=== PATIENT | female | born 1990 | race Caucasian/White ===

== ENCOUNTER 2020-07-12 11:00 | Outpatient (CLI) | payer OTHER, SELFPAY ==
--- NOTE | 2020-07-12 11:08 | XR_ITS ---
WS: [id number] FOOT RIGHT TECHNIQUE: 3 views of the right foot CLINICAL INFORMATION: RIGHT FOOT PAIN COMPARISON: None. FINDINGS: No evidence of acute fracture or dislocation. Normal tarsal metatarsal alignment. Normal calcaneus. N ormal visualized talar dome. No acute findings. XR/XR foot RT min 3V* [id number] IMPRESSION: Normal right foot.
== END 2020-07-12 11:01 | disposition home or self-care (01) ==
LOC: RADWPI 11:04
PROVIDERS: PCP Family Medicine; Visit Provider Physician Assistant Medical
DX: M79.671 Pain in right foot (principal)
CPT/HCPCS: 73630

== ENCOUNTER 2021-07-26 09:41 | Outpatient (CLI) | payer OTHER, SELFPAY ==
[2021-07-26 10:42] LABS: Prolactin 21.32 ng/mL (4.8-23.3)
== END 2021-07-26 09:42 | disposition home or self-care (01) ==
LOC: LAB 09:43
PROVIDERS: PCP Family Medicine; Visit Provider Internal Medicine
DX: D35.2 Benign neoplasm of pituitary gland (principal)
CPT/HCPCS: 36415; 84146

== ENCOUNTER 2022-10-17 15:02 | Outpatient (CLI) | payer OTHER, SELFPAY ==
--- NOTE | 2022-10-17 15:17 | MR_ITS ---
WS: [id number] MRI BRAIN WITHOUT AND WITH CONTRAST, ATTENTION DIRECTED TO THE PITUITARY GLAND HISTORY: prolactinoma COMPARISON: 08/09/2017, 03/15/2015 and 08/27/2009 TECHNIQUE: Diffusion-weighted imaging, axial T2 sequence, and postcontrast images in 3 planes are per formed. High-resolution coronal and sagittal imaging performed through the pituitary region with and without intravenous gadolinium. MultiHance 14 mL IV. Normal diffusion imaging. Very slight ectopia of the cerebellar tonsils, similar to prior studies. No hydrocephalus. Ventricles are normal size. No prior infarct. No mass at the cerebellopontine angles. No intracranial mass. No prior infarct. High-resolution imaging through the pituitary gland is obtained. Pituitary gland is very small calibe r in the floor of the sella turcica. There is no hypointense mass is identified. No abnormal enhancem ent. The overall height of the pituitary gland has decreased since 2018. Pituitary infundibulum and t he optic chiasm are normal. Slight asymmetry of the pituitary with the LEFT pituitary gland being sma ller in height as compared to the RIGHT. No cavernous sinus abnormality. Paranasal sinuses and mastoid air cells are clear. No calvarial abnormality. MR/MR pituitary wo/w con* [id number] IMPRESSION: 1. No pituitary mass or hypointense nodules. Previously described very subtle possible microadenoma on 03/15/2015 is not identified today. 2. Continued atrophy and decrease in height of the pituitary gland as compared to the prior studies. 3. Stable mild cerebellar ectopia.
[2022-10-17] MEDS: gadobenate dimeglumine 20 mL vial IV (16:26)
== END 2022-10-17 15:03 | disposition home or self-care (01) ==
PROVIDERS: PCP Family Medicine; Visit Provider Internal Medicine
DX: D35.2 Benign neoplasm of pituitary gland (principal); Q04.8 Other specified congenital malformations of brain
CPT/HCPCS: 70553; A9577

== ENCOUNTER 2023-09-22 15:29 | Emergency (ER) | payer OTHER, SELFPAY ==
[2023-09-22 15:32] VITALS: BP 108/74; PULSE 102; RESP 17; TEMP 36.6; O2SAT 96; BMI 26.6
--- NOTE | 2023-09-22 15:43 | ED_ITS ---
Documented by User: CRYSTAL Welch 09/22/23 18:38 HPI - Nausea/Vomiting/Diarrhea 2 General: Chief complaint: Nausea/Vomiting/Diarrhea Stated complaint: n/v, diarrhea Time Seen by Provider: 09/22/23 15:36 Source: patient Mode of arrival: ambulatory Limitations: no limitations History of Present Illness: Patient is a 33-year-old female presenting to the emergency department complaining of nausea, vomiting, and diarrhea onset this morning. Patient notes that she took a max dose of semaglutide yesterday as obtained from a friend, which occurred at approximately 2000 in the evening. Patient states she woke up this morning around 0230 with sudden onset nausea and vomiting. She reports too many episodes to count of vomiting, denies any blood in her vomit. She is unable to keep down any solids or liquids. She is also reporting associated diarrhea. She is denying any fevers, chest pains, breathing difficulties, palpitations, or any other symptoms. She does note that she took the semaglutide for the intent of weight loss, and notes being prescribed by her PCP in the past, but was unable to fill the prescription. MD elicited complaint: nausea, vomiting and diarrhea Onset (ago): hour(s) Description of vomiting: watery Description of diarrhea: watery Associated nausea: Yes Associated abdominal pain: No Context: new medication Associated symtoms: Reports nausea; Denies chest pain, diaphoresis, dizziness, dysuria, headache(s) or palpitations Review of Systems 2 General: Reports: 10 or more systems reviewed and unremarkable except in HPI and below Const: Denies: fever(s), chills, change in appetite, change in weight or diaphoresis ENMT: Denies: throat pain or hoarseness Card: Denies: chest pain, palpitations or lightheadedness Resp: Denies: dyspnea, productive cough or wheezing GI: Reports: nausea, vomiting and diarrhea; Denies: abdominal pain, hematemesis or hematochezia : Denies: flank pain, difficulty voiding, dysuria, urinary frequency or urinary urgency Musc: Denies: neck pain or back pain Skin/Breast: Denies: rash or new lesions Neuro: Denies: headache(s) or dizziness PFSH ED 2 PFSH: Medical History History of anxiety History of depression IBS (irritable bowel syndrome) Surgical History Hx of wisdom tooth extraction Family History Mother Hypertension Heart disease Hypercholesteremia Grandmother Hypertension Maternal and Paternal Diabetes Maternal and Paternal Heart disease Maternal Hypercholesteremia Maternal Thyroid disease Maternal Grandfather Hypertension Maternal and Paternal Diabetes Maternal and Paternal Heart disease Maternal Stroke Paternal Hypercholesteremia Maternal Denies family history of Colon cancer Ovarian cancer Breast cancer Uterine cancer Social History Smoking and tobacco/nicotine status: never used tobacco/nicotine Second hand smoke exposure: No Alcohol intake: current Alcohol intake frequency: holidays/special occasions only Alcohol type: hard liquor Substance/Drug Use: never Adopted: No Caregiver/support person: No Lives independently: Yes Household members: spouse Housing: House Marital status: Number of children: 0 Highest education level completed: Associate Degree: Academic Program Current occupational status: employed Physical Exam 2 Const: COMMON NORMALS: no acute distress, average body habitus, patient oriented x3, no limitations, healthy appearing, alert and well nourished G ENERAL APPEARANCE: cooperative and comfortable ORIENTATION/CONSCIOUSNESS: Yes awake HENMT: COMMON NORMALS: normocephalic, atraumatic, hearing grossly normal bilaterally, external ears normal, Normal external nose present, Normal nasal mucous membranes and turbinates present and moist oral mucous membranes HEAD & SCALP: normocephalic and atraumatic NOSE: Normal external nose present and Normal nasal mucous membranes and turbinates present EXTERNAL EAR: Yes external ears normal Eye: COMMON NORMALS: Equal, round and reactive pupils present, EOMs intact bilaterally, conjunctivae normal and normal visual crowder by confrontation C ONJUNCTIVA: Yes conjunctivae normal PUPIL: Yes Equal, round and reactive pupils present Neck/C-Spine: COMMON NORMALS: full ROM, supple, no meningeal signs and no JVD Resp: COMMON NORMALS: normal respiratory effort, No retractions, No use of accessory muscles and clear to auscultation bilaterally AUSCULTATION: clear to auscultation bilaterally, no crackles, no rales, no rhonchi and no wheezes Cardio: COMMON NORMALS: no JVD, regular rate, regular rhythm, S1 normal heart sound present, S2 normal heart sound present, No gallops present (Cardio), No clicks present (Cardio), No murmurs present (Cardio), No rub (Cardio) and Peripheral pulses 2+ throughout RATE: regular rate RHYTHM: regular rhythm HEART SOUNDS: S1 normal heart sound present and S2 normal heart sound present PERIPHERAL PULSES: Peripheral pulses 2+ throughout GI: COMMON NORMALS: Normal to inspection, nondistended, normoactive bowel sounds present, Soft to palpation, non-tender, No hepatosplenomegaly present and no masses AUSCULTATION: Yes normoactive bowel sounds PALPATION: Yes Soft to palpation, No Guarding due to palpation present (GI), No Rigid due to palpation and Yes No hepatosplenomegaly present RECTAL EXAM: deferred : COMMON NORMALS: Yes no CVA tenderness BLADDER/KIDNEY EXAM: Yes no CVA tenderness Back/Pelvis: COMMON NORMALS: no CVA tenderness Extremity: COMMON NORMALS: normal to inspection and full ROM Neuro: COMMON NORMALS: patient oriented x3, moves all extremities, no focal motor deficits and no sensory deficits noted SENSORIUM/ORIENTATION: Yes alert MENINGEAL SIGNS: Yes no meningeal signs Psych: COMMON NORMALS: mental status grossly normal, cooperative and speech normal SPEECH: Yes normal speech Skin: COMMON NORMALS: no rashes or lesions noted GENERAL SKIN EXAM: no rashes or lesions noted Course 2 Vital Signs: Vital signs: Vital Signs Temperature 97.9 F 09/22/23 15:32 Pulse Rate 93 09/22/23 18:02 Respiratory Rate 17 09/22/23 15:32 Blood Pressure 118/78 09/22/23 18:02 Pulse Oximetry 97 09/22/23 18:02 Oxygen Delivery Me thod Room Air 09/22/23 16:11 MDM - Nausea/Vomiting/Diarrhea Medical Decision Making Patient seen and evaluated for nausea vomiting and diarrhea earlier this morning, soon after taking max dose of semaglutide. On arrival patient's vitals unremarkable. Exam unremarkable. Patient started on a liter of fluids and given Zofran. Basic laboratory workup is negative. Upon recheck, patient states that she feels much better and is ready to go home. I will send her home with prescription for Zofran, and instructed her to follow-up with her PCP to discuss any prescriptions for low-dose semaglutide. Return precautions are given and patient agrees with discharge home. Lab Data I reviewed the patient's lab results. 09/22/23 15:49 09/22/23 15:49 Laboratory Results WBC 9.08 10^3/uL (3.29-11.43) 09/22/23 15:49 RBC 4.77 10^6/uL (3.85-5.65) 09/22/23 15:49 Hgb 15.50 g/dL (11.27-16.99) 09/22/23 15:49 Hct 45.3 % (36-47) 09/22/23 15:49 MCV 95.0 fl (85-98) 09/22/23 15:49 MCH 32.5 pg (27-33) 09/22/23 15:49 MCHC 34.2 g/dL (30-55) 09/22/23 15:49 RDW 11.9 % (12.1-15.1) L 09/22/23 15:49 Plt Count 328 10^3/cmm (157-399) 09/22/23 15:49 MPV 9.3 fL (7.4-10.4) 09/22/23 15:49 Neut % (Auto) 82.1 % 09/22/23 15:49 Lymph % (Auto) 13.4 % 09/22/23 15:49 [place] % (Auto) 4.1 % 09/22/23 15:49 Eos % (Auto) 0.0 % 09/22/23 15:49 Baso % (Auto) 0.3 % 09/22/23 15:49 Neut # (Auto) 7.45 10^3/uL (1.8-7.7) 09/22/23 15:49 Lymph # (Auto) 1.2 10^3/uL (0.8-4.8) 09/22/23 15:49 [place] # (Auto) 0.4 10^3/uL (0.2-0.9) 09/22/23 15:49 Eos # (Auto) 0.0 10^3/uL (0.0-0.8) 09/22/23 15:49 Baso # (Auto) 0.0 10^3/uL (0.0-0.1) 09/22/23 15:49 Nucleated RBC % (auto) 0 % 09/22/23 15:49 Nucleated RBCs # 0.0 /100WBC 09/22/23 15:49 Sodium 139 mmol/L (136-145) 09/22/23 15:49 Potassium 4.5 mmol/L (3.5-5.1) 09/22/23 15:49 Chloride 102 mmol/L (98-107) 09/22/23 15:49 Carbon Dioxide 26 mmol/L (22-29) 09/22/23 15:49 Anion Gap 15.5 (5-19) 09/22/23 15:49 BUN 12 mg/dL (6-20) 09/22/23 15:49 Creatinine 0.6 mg/dL (0.5-0.9) 09/22/23 15:49 GFR Calculation 115.9 mL/min (90-130) 09/22/23 15:49 Glucose 92 mg/dL (65-115) 09/22/23 15:49 Calculated Osmolality 287 mOsm/kg (285-295) 09/22/23 15:49 Calcium 9.5 mg/dL (8.5-10.5) 09/22/23 15:49 Total Bilirubin 0.4 mg/dL (0.15-1.2) 09/22/23 15:49 AST 19 U/L (0-32) 09/22/23 15:49 ALT 16 U/L (0-33) 09/22/23 15:49 Alkaline Phosphatase 84 U/L (35-105) 09/22/23 15:49 Total Protein 7.4 g/dL (6.6-8.7) 09/22/23 15:49 Albumin 4.0 g/dL (3.5-5.2) 09/22/23 15:49 Globulin 3.4 g/dL (1.3-4.6) 09/22/23 15:49 Lipase 48 U/L (13-60) 09/22/23 15:49 HCG, Qual Negative (Negative) 09/22/23 15:49 Urine Color Yellow (Yellow) 09/22/23 16:50 Urine Appearance Clear (CLEAR) 09/22/23 16:50 Urine pH 8 (5-7) H 09/22/23 16:50 Ur Specific [place] 1.010 (1.005-1.030) 09/22/23 16:50 Urine Protein Neg (Negative) 09/22/23 16:50 Urine Glucose (UA) Norm (Normal) 09/22/23 16:50 Urine Ketones 2+ (Negative) H 09/22/23 16:50 Urine Blood Neg (Negative) 09/22/23 16:50 Urine Nitrate Negative (Negative) 09/22/23 16:50 Urine Bilirubin Neg (Negative) 09/22/23 16:50 Urine Urobilinogen Norm mg/dL (Negative) 09/22/23 16:50 Ur Leukocyte Esterase 1+ (Negative) H 09/22/23 16:50 Urine RBC None /hpf (0-2) 09/22/23 16:50 Urine WBC 5-10 /hpf (0-5) H 09/22/23 16:50 Ur Squamous Epith Cells 0-4 /hpf (0-5) H 09/22/23 16:50 Amorphous Sediment Not Reportable 09/22/23 16:50 Urine Bacteria Trace /hpf (NONE) 09/22/23 16:50 Urine Mucus 1+ /hpf 09/22/23 16:50 No radiology studies performed this visit Discharge Plan Discharge Patient Disposition: Home Clinical Impression: Drug-induced nausea and vomiting Condition: Stable Prescriptions: New ondansetron 4 mg tablet,disintegrating 4 mg PO TID PRN (Reason: nausea and vomiting) Qty: 60 0RF No Action estradiol 2 mg (7.5 mcg /24 hour) ring 1 vag ring vaginal Q90D loratadine [Claritin] 10 mg tablet 10 mg PO DAILY cabergoline 0.5 mg tablet See Rx Instructions .ROUTE .COMPLEX Qty: 24 0RF Dose Instruction: TAKE 1 TABLET BY MOUTH TWICE A WEEK Rx Instructions: TAKE 1 TABLET BY MOUTH TWICE A WEEK ondansetron 4 mg tablet,disintegrating 4 mg PO Q6H PRN (Reason: Nausea And Vomiting) duloxetine 30 mg capsule,delayed release(DR/EC) 30 mg PO DAILY Cranberry 3,000 3,000 mg PO DAILY Discharge Orders: Discharge ED (Routine); Ordered 09/22/23 Ordered By: Cedric Soto Referrals: Jessica Alcantar MD [Primary Care Provider] - Discharge Diet: Usual diet Discharge Activity: Increase activity as tolerated Patient Instructions: Acute Nausea and Vomiting (ED) Activity Restrictions/Additional Instructions: Zofran for nausea. Plenty of fluids. Follow-up with primary care provider to discuss prescription of semaglutide. Return with any new or concerning symptoms. Coding Level of Care Code ED Product Support Rep for Chg Fwd Documented by User: Catrachito Ramirez DO 09/28/23 12:10 HPI - Nausea/Vomiting/Diarrhea 2 General: Chief complaint: Nausea/Vomiting/Diarrhea Stated complaint: n/v, diarrhea Time Seen by Provider: 09/22/23 15:36 PFSH ED 2 PFSH: Medical History History of anxiety History of depression IBS (irritable bowel syndrome) Surgical History Hx of wisdom tooth extraction Family History Mother Hypertension Heart disease Hypercholesteremia Grandmother Hypertension Maternal and Paternal Diabetes Maternal and Paternal Heart disease Maternal Hypercholesteremia Maternal Thyroid disease Maternal Grandfather Hypertension Maternal and Paternal Diabetes Maternal and Paternal Heart disease Maternal Stroke Paternal Hypercholesteremia Maternal Denies family history of Colon cancer Ovarian cancer Breast cancer Uterine cancer Social History Smoking and tobacco/nicotine status: never used tobacco/nicotine Second hand smoke exposure: No Alcohol intake: current Alcohol intake frequency: holidays/special occasions only Alcohol type: hard liquor Substance/Drug Use: never Adopted: No Caregiver/support person: No Lives independently: Yes Household members: spouse Housing: House Marital status: Number of children: 0 Highest education level completed: Associate Degree: Academic Program Current occupational status: employed Course 2 Vital Signs: Vital signs: Vital Signs Temperature 97.9 F 09/22/23 15:32 Pulse Rate 93 09/22/23 18:02 Respiratory Rate 17 09/22/23 15:32 Blood Pressure 118/78 09/22/23 18:02 Pulse Oximetry 97 09/22/23 18:02 Oxygen Delivery Me thod Room Air 09/22/23 16:11 MDM - Nausea/Vomiting/Diarrhea Medical Decision Making Patient seen and evaluated for nausea vomiting and diarrhea earlier this morning, soon after taking max dose of semaglutide. On arrival patient's vitals unremarkable. Exam unremarkable. Patient started on a liter of fluids and given Zofran. Basic laboratory workup is negative. Upon recheck, patient states that she feels much better and is ready to go home. I will send her home with prescription for Zofran, and instructed her to follow-up with her PCP to discuss any prescriptions for low-dose semaglutide. Return precautions are given and patient agrees with discharge home. Chart review Lab Data 09/22/23 15:49 09/22/23 15:49 Laboratory Results WBC 9.08 10^3/uL (3.29-11.43) 09/22/23 15:49 RBC 4.77 10^6/uL (3.85-5.65) 09/22/23 15:49 Hgb 15.50 g/dL (11.27-16.99) 09/22/23 15:49 Hct 45.3 % (36-47) 09/22/23 15:49 MCV 95.0 fl (85-98) 09/22/23 15:49 MCH 32.5 pg (27-33) 09/22/23 15:49 MCHC 34.2 g/dL (30-55) 09/22/23 15:49 RDW 11.9 % (12.1-15.1) L 09/22/23 15:49 Plt Count 328 10^3/cmm (157-399) 09/22/23 15:49 MPV 9.3 fL (7.4-10.4) 09/22/23 15:49 Neut % (Auto) 82.1 % 09/22/23 15:49 Lymph % (Auto) 13.4 % 09/22/23 15:49 [place] % (Auto) 4.1 % 09/22/23 15:49 Eos % (Auto) 0.0 % 09/22/23 15:49 Baso % (Auto) 0.3 % 09/22/23 15:49 Neut # (Auto) 7.45 10^3/uL (1.8-7.7) 09/22/23 15:49 Lymph # (Auto) 1.2 10^3/uL (0.8-4.8) 09/22/23 15:49 [place] # (Auto) 0.4 10^3/uL (0.2-0.9) 09/22/23 15:49 Eos # (Auto) 0.0 10^3/uL (0.0-0.8) 09/22/23 15:49 Baso # (Auto) 0.0 10^3/uL (0.0-0.1) 09/22/23 15:49 Nucleated RBC % (auto) 0 % 09/22/23 15:49 Nucleated RBCs # 0.0 /100WBC 09/22/23 15:49 Sodium 139 mmol/L (136-145) 09/22/23 15:49 Potassium 4.5 mmol/L (3.5-5.1) 09/22/23 15:49 Chloride 102 mmol/L (98-107) 09/22/23 15:49 Carbon Dioxide 26 mmol/L (22-29) 09/22/23 15:49 Anion Gap 15.5 (5-19) 09/22/23 15:49 BUN 12 mg/dL (6-20) 09/22/23 15:49 Creatinine 0.6 mg/dL (0.5-0.9) 09/22/23 15:49 GFR Calculation 115.9 mL/min (90-130) 09/22/23 15:49 Glucose 92 mg/dL (65-115) 09/22/23 15:49 Calculated Osmolality 287 mOsm/kg (285-295) 09/22/23 15:49 Calcium 9.5 mg/dL (8.5-10.5) 09/22/23 15:49 Total Bilirubin 0.4 mg/dL (0.15-1.2) 09/22/23 15:49 AST 19 U/L (0-32) 09/22/23 15:49 ALT 16 U/L (0-33) 09/22/23 15:49 Alkaline Phosphatase 84 U/L (35-105) 09/22/23 15:49 Total Protein 7.4 g/dL (6.6-8.7) 09/22/23 15:49 Albumin 4.0 g/dL (3.5-5.2) 09/22/23 15:49 Globulin 3.4 g/dL (1.3-4.6) 09/22/23 15:49 Lipase 48 U/L (13-60) 09/22/23 15:49 HCG, Qual Negative (Negative) 09/22/23 15:49 Urine Color Yellow (Yellow) 09/22/23 16:50 Urine Appearance Clear (CLEAR) 09/22/23 16:50 Urine pH 8 (5-7) H 09/22/23 16:50 Ur Specific [place] 1.010 (1.005-1.030) 09/22/23 16:50 Urine Protein Neg (Negative) 09/22/23 16:50 Urine Glucose (UA) Norm (Normal) 09/22/23 16:50 Urine Ketones 2+ (Negative) H 09/22/23 16:50 Urine Blood Neg (Negative) 09/22/23 16:50 Urine Nitrate Negative (Negative) 09/22/23 16:50 Urine Bilirubin Neg (Negative) 09/22/23 16:50 Urine Urobilinogen Norm mg/dL (Negative) 09/22/23 16:50 Ur Leukocyte Esterase 1+ (Negative) H 09/22/23 16:50 Urine RBC None /hpf (0-2) 09/22/23 16:50 Urine WBC 5-10 /hpf (0-5) H 09/22/23 16:50 Ur Squamous Epith Cells 0-4 /hpf (0-5) H 09/22/23 16:50 Amorphous Sediment Not Reportable 09/22/23 16:50 Urine Bacteria Trace /hpf (NONE) 09/22/23 16:50 Urine Mucus 1+ /hpf 09/22/23 16:50 Discharge Plan Discharge Patient Disposition: Home Clinical Impression: Drug-induced nausea and vomiting Condition: Stable Prescriptions: New ondansetron 4 mg tablet,disintegrating 4 mg PO TID PRN (Reason: nausea and vomiting) Qty: 60 0RF No Action estradiol 2 mg (7.5 mcg /24 hour) ring 1 vag ring vaginal Q90D loratadine [Claritin] 10 mg tablet 10 mg PO DAILY cabergoline 0.5 mg tablet See Rx Instructions .ROUTE .COMPLEX Qty: 24 0RF Dose Instruction: TAKE 1 TABLET BY MOUTH TWICE A WEEK Rx Instructions: TAKE 1 TABLET BY MOUTH TWICE A WEEK ondansetron 4 mg tablet,disintegrating 4 mg PO Q6H PRN (Reason: Nausea And Vomiting) duloxetine 30 mg capsule,delayed release(DR/EC) 30 mg PO DAILY Cranberry 3,000 3,000 mg PO DAILY Discharge Orders: Discharge ED (Routine); Ordered 09/22/23 Ordered By: Cedric Soto Referrals: Jessica Alcantar MD [Primary Care Provider] - Discharge Diet: Usual diet Discharge Activity: Increase activity as tolerated Patient Instructions: Acute Nausea and Vomiting (ED) Activity Restrictions/Additional Instructions: Zofran for nausea. Plenty of fluids. Follow-up with primary care provider to discuss prescription of semaglutide. Return with any new or concerning symptoms. Coding Level of Care Code ED Product Support Rep for Bronson Noel
[2023-09-22 15:53] LABS: Basophils % 0.3 %; Hematocrit 45.3 % (36-47); Lymphocytes # 1.2 10^3/uL (0.8-4.8); Lymphocytes % 13.4 %; Mean Corpuscular HGB Conc 34.2 g/dL (30-55); Mean Corpuscular Hemoglobin 32.5 pg (27-33); Mean Platelet Volume 9.3 fL (7.4-10.4); Monocytes # 0.4 10^3/uL (0.2-0.9); Monocytes % 4.1 %; Neutrophils # 7.45 10^3/uL (1.8-7.7); Neutrophils % 82.1 %; Nucleated Red Blood Cells % 0 %; Platelet Count 328 10^3/cmm (157-399); Red Blood Count 4.77 10^6/uL (3.85-5.65); Red Cell Distribution Width 11.9 % (12.1-15.1); White Blood Count 9.08 10^3/uL (3.29-11.43)
[2023-09-22 16:05] LABS: HCG, Serum Qual Negative (Negative)
[2023-09-22] MEDS: ondansetron 2 mg/ML SDV 2 mL 4 MG IVP (16:07)
[2023-09-22] MEDS: sodium chloride 0.9% 1,000 ML 999 ML IV (16:08)
[2023-09-22 16:10] LABS: Alanine Aminotransferase 16 U/L (0-33); Alkaline Phosphatase 84 U/L (35-105); Anion Gap 15.5 (5-19); Aspartate Amino Transferase 19 U/L (0-32); Blood Urea Nitrogen 12 mg/dL (6-20); Calcium 9.5 mg/dL (8.5-10.5); Carbon Dioxide 26 mmol/L (22-29); Chloride 102 mmol/L (98-107); Creatinine Clr Calc Pharmacy 139.2241; Globulin 3.4 g/dL (1.3-4.6); Glomerular Filtration Rate 115.9 mL/min (90-130); Glucose 92 mg/dL (65-115); Lipase 48 U/L (13-60); Osmolality Calculated 287 mOsm/kg (285-295); Potassium 4.5 mmol/L (3.5-5.1); Sodium 139 mmol/L (136-145); Total Bilirubin 0.4 mg/dL (0.15-1.2); Total Protein 7.4 g/dL (6.6-8.7)
[2023-09-22 16:11] VITALS: BP 98/64; PULSE 95; O2SAT 97
[2023-09-22 17:15] LABS: Glucose Urine UA Norm (Normal); Ketones Urine 2+ (Negative); Protein Urine Neg (Negative); Urine Appearance Clear (CLEAR); Urine Color Yellow (Yellow); pH Urine 8 (5-7)
[2023-09-22 17:16] LABS: Add Urine Culture? No; Add Urine Microscopic? YES; Bacteria Urine TRACE /hpf; Bilirubin Urine Neg (Negative); Blood Urine Neg (Negative); Leukocyte Esterase Urine 1+ (Negative); Mucus Urine 1+ /hpf; Nitrate Urine Negative (Negative); Squamous Epithelial Cell Urine 0-4 /hpf (0-5); Urobilinogen Urine Norm (Negative)
[2023-09-22 18:02] VITALS: BP 118/78; PULSE 93; O2SAT 97
== END 2023-09-22 18:03 | disposition home or self-care (01) ==
PROVIDERS: Emergency Provider Physician Assistant; PCP Family Medicine
DX: R11.2 Nausea with vomiting, unspecified (principal); T50.995A Adverse effect of other drugs, medicaments and biological substances, initial encounter
CPT/HCPCS: 36415; 80053; 81001; 83690; 84703; 85025; 96361; 96374; 99284; J2405; J7030

== ENCOUNTER 2024-05-09 14:34 | Outpatient (CLI) | payer OTHER, SELFPAY ==
--- NOTE | 2024-05-09 14:44 | XR_ITS ---
WS: [id number] Right foot, 3 views, 05/09/2024 Clinical Data: PAIN IN RIGHT FOOT Comparison: Right foot, 07/12/2020 Findings: No fractures or dislocations are seen. No bone destruction or erosion is noted. The joint spaces and soft tissues are normal. XR/XR foot RT min 3V* [id number] Impression: Negative right foot.
== END 2024-05-09 14:35 | disposition home or self-care (01) ==
PROVIDERS: PCP Family Medicine; Visit Provider Physician Assistant Medical
DX: M79.671 Pain in right foot (principal)
CPT/HCPCS: 73630

== ENCOUNTER → 2025-02-06 07:10 | Outpatient (BNVA) | payer OTHER, SELFPAY | PROVIDERS: PCP Family Medicine | DX: D35.2 Benign neoplasm of pituitary gland (principal); E23.7 Disorder of pituitary gland, unspecified | CPT/HCPCS: 84146 ==

== ENCOUNTER 2025-03-23 17:00 | Outpatient (CLI) | payer SELFPAY ==
--- NOTE | 2025-03-23 17:00 | US_ITS ---
WS: [id number] US pelv w/transvag [id number] HISTORY: N92.6 - Irregular menstruation, unspecified COMPARISON: None available. Uterus: 5.8 cm x 3.0 cm x 2.3 cm. Normal size anteverted uterus. No fibroid or mass. Endometrium: 0.8 cm. Normal. Homogeneous endometrium. Right ovary: 2.1 cm x 1.8 cm x 1.7 cm. Normal size and vascularity, no cystic or solid masses. Small follicles. Left ovary: Not identified. No adnexal mass. No free fluid in the cul-de-sac. US/US pelv w/transvag [id number] IMPRESSION: 1. Normal uterus. 2. Normal endometrium. No mass or increased vascularity. 3. LEFT ovary not identified.
== END 2025-03-23 17:01 | disposition home or self-care (01) ==
LOC: RAD 17:04
PROVIDERS: PCP Family Medicine; Visit Provider Obstetrics & Gynecology
DX: N92.6 Irregular menstruation, unspecified (principal)
CPT/HCPCS: 76830; 76856

== ENCOUNTER → 2025-03-27 07:49 | Outpatient (BNVA) | payer OTHER, SELFPAY | PROVIDERS: PCP Family Medicine; Visit Provider Obstetrics & Gynecology | DX: Z30.430 Encounter for insertion of intrauterine contraceptive device (principal) | CPT/HCPCS: 81025 ==